=== PATIENT | male | born 1965 | race Caucasian/White ===

== ENCOUNTER → 2018-11-24 | Outpatient (REF) | payer OTHER | LOC: M LAB LCGH 09:09 | PROVIDERS: ATTEND Family Medicine | DX: D23.61 Other benign neoplasm of skin of right upper limb, including shoulder (principal) ==

== ENCOUNTER 2022-12-10 07:42 | Day surgery (SDC) | payer MEDICARE ==
[~2022-12-10] VITALS: Ht 177.8 cm; Wt 106.5 kg
[~2022-12-10 07:42] MED LIST: ALLO300T2 PO; BSS IRRIG/VANCO(10MG)/TOBRA(5MG)/EPINEPH(1:1000-0.5CC)500ML BAG-ORONLY IR ONE; CYCLOPENTOLATE 1% OPHTH SOLN 2ML BTL OS SCH; FURO20TA2 PO; LIDOCAINE 1% SDV 5ML VIAL As Ordered ONE; LIDOCAINE 3.5 % 1ML OPHTH TOPICAL GEL OU ONE; LOSA50TA28 PO; METF-838 PO; MIDAZOLAM INJ 2MG/2ML VIAL As Ordered ONE; OFLOXACIN 0.3 % (OCUFLOX) OPTH SOL 5ML OS ONE; PHENYLEPHRINE 10% OPHTH SOL 5ML OS PRN; PHENYLEPHRINE 2.5% OPHTH SOL 2ML OS SCH; SPIR-10 PO; TROPICAMIDE 1% OPHTH SOLN 15ML OS SCH; TRUL0.5I SC; XARE20TA PO; fentaNYL 100 MCG/2 ML INJECTION As Ordered ONE
[2022-12-10] MEDS ORDERED: CEFUROXIME 1MG/0.1ML INTRACAMERAL INJ As Ordered ONE (10:08)
[2022-12-10 10:12] VITALS: BP 120/79; TEMP 98; O2SAT 97
== END 2022-12-10 10:26 | disposition home or self-care (01) ==
LOC: M SDC 07:42
PROVIDERS: ATTEND Ophthalmology
DX: H25.12 Age-related nuclear cataract, left eye (principal); I48.91 Unspecified atrial fibrillation; I10 Essential (primary) hypertension; E11.9 Type 2 diabetes mellitus without complications; M10.9 Gout, unspecified; K57.92 Diverticulitis of intestine, part unspecified, without perforation or abscess without bleeding; G47.33 Obstructive sleep apnea (adult) (pediatric); Z91.041 Radiographic dye allergy status; Z91.013 Allergy to seafood; Z88.1 Allergy status to other antibiotic agents; Z79.01 Long term (current) use of anticoagulants; Z79.84 Long term (current) use of oral hypoglycemic drugs; Z79.899 Other long term (current) drug therapy
CPT/HCPCS: 66984; 92015; J0697; J2250; J3010; V2788

== ENCOUNTER 2023-01-07 07:51 | Day surgery (SDC) | payer OTHER ==
[~2023-01-07] VITALS: Ht 177.8 cm; Wt 107.4 kg
[~2023-01-07 07:51] MED LIST changes: +CEFUROXIME 1MG/0.1ML INTRACAMERAL INJ As Ordered ONE; +CYCLOPENTOLATE 1% OPHTH SOLN 2ML BTL OD SCH; -CYCLOPENTOLATE 1% OPHTH SOLN 2ML BTL OS SCH; +OFLOXACIN 0.3 % (OCUFLOX) OPTH SOL 5ML OD ONE; -OFLOXACIN 0.3 % (OCUFLOX) OPTH SOL 5ML OS ONE; +PHENYLEPHRINE 10% OPHTH SOL 5ML OD PRN; -PHENYLEPHRINE 10% OPHTH SOL 5ML OS PRN; +PHENYLEPHRINE 2.5% OPHTH SOL 2ML OD SCH; -PHENYLEPHRINE 2.5% OPHTH SOL 2ML OS SCH; +TROPICAMIDE 1% OPHTH SOLN 15ML OD SCH; -TROPICAMIDE 1% OPHTH SOLN 15ML OS SCH
[2023-01-07 09:45] VITALS: BP 144/89; TEMP 96.5; O2SAT 96
== END 2023-01-07 10:07 | disposition home or self-care (01) ==
LOC: M SDC 07:51
PROVIDERS: ATTEND Ophthalmology
DX: H25.11 Age-related nuclear cataract, right eye (principal); I48.91 Unspecified atrial fibrillation; I13.0 Hypertensive heart and chronic kidney disease with heart failure and stage 1 through stage 4 chronic kidney disease, or unspecified chronic kidney disease; I50.9 Heart failure, unspecified; E11.9 Type 2 diabetes mellitus without complications; M10.9 Gout, unspecified; G47.30 Sleep apnea, unspecified; N18.30 Chronic kidney disease, stage 3 unspecified; Z88.1 Allergy status to other antibiotic agents; Z91.041 Radiographic dye allergy status; Z91.013 Allergy to seafood; Z79.899 Other long term (current) drug therapy; Z79.01 Long term (current) use of anticoagulants; Z79.84 Long term (current) use of oral hypoglycemic drugs; Z79.85 Long-term (current) use of injectable non-insulin antidiabetic drugs
CPT/HCPCS: 66984; 92015; J0697; J2250; J3010; V2788